=== PATIENT | female | born 1945 | race African-American/Black ===

== ENCOUNTER 2020-04-01 09:19 | Outpatient (CLI) | payer MEDICARE, OTHER, SELFPAY ==
--- NOTE | ~2020-04-01 | US_ITS ---
EXAMINATION: US pelvic complete w TV DATE: 04/01/2020 11:14 INDICATION: Other specified noninflammatory disorders of the vagina, vaginal discharge TECHNIQUE: Multiple transabdominal and endovaginal sonographic images of the pelvis were obtained. COMPARISON: 10/21/2012 FINDINGS: The uterus measures 5.8 x 4.6 x 3.1 cm. The endometrial complex measures 6 mm. The ovaries are not visualized however no adnexal abnormality is seen. There is no free fluid in the pelvis. IMPRESSION: 1. No sonographic correlate for the patient's symptoms. Reviewed, dictated and finalized at location A.
--- NOTE | ~2020-04-01 | US_ITS ---
EXAMINATION: US abdomen complete EXAM DATE: 04/01/2020 11:15 INDICATION: Elevated creatinine. TECHNIQUE: Multiple grayscale and Doppler images of the complete abdomen were obtained (by a technolo gist who performed the scan) and subsequently reviewed. There is no prior study for comparison. FINDINGS: The abdominal aorta is normal in caliber. Visualized portion IVC is patent. The pancreatic head a nd body are normal in appearance. The pancreatic tail is not visualized. The liver has normal echogenicity and contour. There is a cyst measuring 2.6 cm. There is no eviden ce of intrahepatic biliary duct dilation. Portal venous flow was seen in the hepatopedal, normal dir ection and has normal Doppler waveform. Common bile duct measures 4 mm, which is normal. The gallbladder wall is normal in thickness, with ex pected amount of distention. No sonographic evidence of pericholecystic fluid. There is no cholelit hiases. Technologist performing exam reports patient did not demonstrate sonographic Hyatt's sign. Please note that this sign is less reliable in patients who have received pain medication. Right kidney: There is normal contour and echogenicity. It measures 9.5 x 4.2 x 3.4 centimeters. T here are no focal renal lesions identified. There is no hydronephrosis. Left kidney: There is normal contour and echogenicity. It measures 9.3 x 4.6 x 4.6 centimeters. The re are cysts measuring up to 2.7 cm. There is no hydronephrosis. The spleen measures 7.9 centimeters and is morphologically normal. IMPRESSION: 1. Unremarkable complete abdominal ultrasound exam. Reviewed, dictated and finalized at location B.
== END 2020-04-01 09:20 | disposition home or self-care (01) ==
LOC: ANHIMG 09:25
PROVIDERS: PCP Family Medicine; Visit Provider Family Medicine
DX: E11.22 Type 2 diabetes mellitus with diabetic chronic kidney disease (principal); N89.8 Other specified noninflammatory disorders of vagina
CPT/HCPCS: 76700; 76830; 76856

== ENCOUNTER → 2020-06-22 12:25 | Outpatient (CLI) | payer MEDICARE, OTHER, SELFPAY ==
--- NOTE | ~2020-06-22 | MM_ITS ---
EXAMINATION: MM screening [facility] BI w deja HISTORY: Screening mammogram TECHNIQUE: Craniocaudal and mediolateral oblique 3-D tomosynthesis images were obtained and synthetic 2-D images were generated. CAD analysis was submitted and interpreted. COMPARISON: 05/29/2019, three 04/11/2018, 02/19/2017 BREAST PARENCHYMAL COMPOSITION: The breasts are almost entirely fatty. FINDINGS: There is no evidence of suspicious mass, calcification, or architectural distortion to sugg est malignancy in either breast. There has been no suspicious interval change. IMPRESSION: 1. No mammographic evidence of malignancy. 2. Recommend routine screening mammography in one year. BI-RADS Category 1: Negative Reviewed, dictated and finalized at location A. E RUBBER
--- NOTE | ~2020-06-22 | DEXA_ITS ---
Bone Density Report Name: Tata Bell Age: 74 Sex: Female Ethnicity: White Date of : 1945 Indication: postmenopausal; screening for osteoporosis; height loss; Referring Provider: CHRISTIANE PHILLIPS Study: Bone densitometry was performed. Exam Date: June 22, 2020 Accession number: [id number] Bone Density: Region BMD T-score Z-score Classification AP Spine (L1, L4) 1.389 3.2 5.7 Normal Femoral Neck (Left) 1.156 2.8 4.9 Normal Total Hip (Left) 1.007 0.5 2.4 Normal Femoral Neck (Right) 0.872 0.2 2.4 Normal Total Hip (Right) 0.983 0.3 2.2 Normal Total Hip Mean 0.995 0.4 2.3 Normal World Health Organization criteria for BMD impression classify patients as: Normal (T-score at or above -1.0), Osteopenia (T-score between -1.0 and -2.5), or Osteoporosis (T-score at or below -2.5). 10-year Fracture Risk: FRAX not reported because: All T-scores for Spine Total, Hip Total, Femoral Neck at or above -1.0 Previous Exams: Region Exam Age BMD T-score BMD Change BMD Change Date g/cm2 vs Baseline vs Previous AP Spine(L1, L4) 06/22/2020 74 1.389 3.2 -0.024* -0.024* 04/11/2018 72 1.412 3.4 Total Hip(Left) 06/22/2020 74 1.007 0.5 0.037* 0.037* 04/11/2018 72 0.970 0.2 Total Hip(Right) 06/22/2020 74 0.983 0.3 -0.034* -0.034* 04/11/2018 72 1.017 0.6 *Denotes significance at 95% confidence level, LSC for AP Spine = 0.022 g/cm2, LSC for Total Hip = 0.027 g/cm2 Clinical Information Provided by Patient: Has used the following medications: Vitamin D Patient maximum height was 62 Menopause Age: 48 No regular weight bearing exercise Does not regularly consume dairy products Drinks caffeinated beverages Onset of menses at age 9 Number of children 4 Impression: The patient has normal bone mass. The BMD for the AP Spine(L1, L4) decreased, changing by -0.024 since the last DXA exam. The BMD for the Total Hip(Right) decreased, changing by -0.034 since the last DXA exam. Discussion: LOW RISK OF FRACTURE; BONE DENSITY IS WELL ABOVE THE MINIMUM DESIRABLE LEVEL AND ABOVE AVERAGE FOR AGE AND SEX AT ALL SKELETAL SITES TESTED. This person's bone density is above expected limits for age and sex. This is rarely clinically significant, but should be pursued if there are significant musculoskeletal complaints. The patient should follow a healthful lifestyle (good nutrition with adequate calciu
== END ==
PROVIDERS: PCP Family Medicine; Visit Provider Family Medicine
DX: Z12.31 Encounter for screening mammogram for malignant neoplasm of breast (principal); Z78.0 Asymptomatic menopausal state
CPT/HCPCS: 77063; 77067; 77080

== ENCOUNTER 2020-07-03 12:35 | Outpatient (CLI) | payer MEDICARE, OTHER, SELFPAY ==
--- NOTE | ~2020-07-03 | CT_ITS ---
EXAMINATION: CT lumbar spine [facility] EXAM DATE: 07/03/2020 13:35 INDICATION: M47.816 - Spondylosis without myelopathy or radiculopathy, lumbar region. TECHNIQUE: Spiral CT of the lumbar spine was performed without contrast. Axial, coronal and sagittal images were reviewed. The dose-length product (DLP) for this examination was 416.42 mGy-cm. The e xposure was tailored according to patient size (auto mA exposure control), and iterative reconstructi on (ASIR) was used as additional dose reduction technique. Correlation is made to MR lumbar spine 06/2018. FINDINGS: There is moderate disc disease L1-2 and L4-5. There is 4 mm anterolisthesis L4 on L5 withou t spondylolysis. The vertebral bodies are otherwise aligned. Partial osseous fusion of the L5-S1 disc space. There are no acute fractures identified. Paraspinal soft tissue is unremarkable. Level by level evaluation: T12-L1: Disc does not extend beyond the endplate margin. Facet arthropathy: Mild to moderate. Neural foraminal stenosis: Mild to moderate right. Central canal stenosis: No stenosis. L1-L2: There is a mild diffuse disc bulge. Facet arthropathy: Moderate to severe bilateral. Neural foraminal stenosis: Mild bilateral. Central canal stenosis: Mild. L2-L3: There is a mild diffuse disc bulge. Facet arthropathy: Severe left, moderate right. Neural foraminal stenosis: Mild bilateral. Central canal stenosis: No stenosis. L3-L4: There is a mild diffuse disc bulge. Facet arthropathy: Severe left, moderate right. Neural foraminal stenosis: Mild bilateral. Central canal stenosis: Mild. L4-L5: There is a moderate diffuse disc bulge. Facet arthropathy: Severe bilateral. Neural foraminal stenosis: Moderate bilateral. Central canal stenosis: Moderate to severe. L5-S1: There is a moderate diffuse disc bulge. Facet arthropathy: Moderate. Neural foraminal stenosis: Moderate to severe right, moderate left. Central canal stenosis: Mild to moderate. IMPRESSION: 1. L4-5 grade 1 anterolisthesis, severe facet arthropathy and moderate to severe central canal steno sis. 2. Lesser spondylosis other levels. 3. No acute findings. Reviewed, dictated and finalized at location B. MOBILE OR TRUCK RENTAL DISPATCHER IMPRESSION: 1. L4-5 grade 1 anterolisthesis, severe facet arthropathy and moderate to vicky re central canal stenosis. 2. Lesser spondylosis other levels. 3. No acute findings.
== END 2020-07-03 12:36 | disposition home or self-care (01) ==
PROVIDERS: PCP Family Medicine; Visit Provider Family Medicine
DX: M47.816 Spondylosis without myelopathy or radiculopathy, lumbar region (principal); M48.061 Spinal stenosis, lumbar region without neurogenic claudication
CPT/HCPCS: 72131

== ENCOUNTER → 2021-03-15 12:59 | Outpatient (CLI) | payer MEDICARE, OTHER, SELFPAY ==
--- NOTE | ~2021-03-15 | US_ITS ---
EXAMINATION: US renal BI DATE: 03/15/2021 14:20 INDICATION: Chronic kidney disease stage III. TECHNIQUE: Multiple ultrasound grayscale images of the kidneys were obtained. COMPARISON: Ultrasound 04/01/2020, lumbar spine CT 07/03/2020, lumbar spine MRI 07/03/09 FINDINGS: The right kidney measures 7.4 x 4.0 x 4.0 cm. The left kidney measures 7.7 x 3.8 x 3.3 cm. The kidney s demonstrate normal parenchymal echogenicity. There are cysts in left kidney measuring up to 2.3 cm. There is no hydronephrosis. The bladder is normal. IMPRESSION: 1. Mild atrophy of the kidneys. No hydronephrosis. Reviewed, dictated and finalized at location A.
== END ==
PROVIDERS: PCP Family Medicine; Visit Provider Family Medicine
DX: N18.30 Chronic kidney disease, stage 3 unspecified (principal); N26.1 Atrophy of kidney (terminal)
CPT/HCPCS: 76775

== ENCOUNTER → 2021-04-20 07:23 | Outpatient (CLI) | payer MEDICARE, OTHER, SELFPAY ==
--- NOTE | 2021-05-13 17:44 | WPDSLEEPSTUD ---
Sleep Study Date of Study: 04/20/21 Ordering Provider: Paxton London MD Interpreting Physician: Marianne Medrano MD Sleep Study Type: Polysomnogram Height: 1.55 m Weight: 69.4 kg Body Mass Index: 28.9 Neck Circumference (inches): 13 [place]: 11 Reason for Sleep Study Hypersomnolence, obstructive sleep apnea * 01/09/2006; basic sleep study; Moderate obstructive sleep apnea with an AHI of 20.2, significant oxygen desaturation and mild myoclonus. * 02/18/2006; CPAP titration; optimal pressure 17 cm; still had elevated limb movements during the titration. BMI was 36.1. Sleep History Tata Bell is a 75 year old female with excessive daytime sleepiness. She has a deviated nasal septum and hypertrophy of the nasal turbinates. She has had obstructive sleep apnea diagnosed 30 years ago. She used CPAP for a few years then stopped. She had a repeat basic study 01/09/2006 and started using it again after a CPAP retitration in 2005 with 17 cm as the optimal pressure. She stopped using CPAP when COVID pandemic started. She has lost weight and is not sure that she still needs CPAP.. She was also worried with a Eleuterio recall about using her device. Her witnessed her having apneic respirations almost nightly. She has 2 brothers with sleep apnea. She has difficulty falling asleep at night she wakes up during the night. She rarely awakens from sleep feeling short of breath. She does not awaken at night with heartburn, belching or coughing. She frequently snores loudly. She occasionally has trouble sleeping with a cold. She does not wake up gasping for breath at night. She frequently has breathing problems at night. She rarely sweats excessively at night. She does not notice her heart pounding or beating irregularly at night. She constantly falls asleep during the day, constantly falls asleep involuntarily but never while driving. She does not have loss of muscle tone with strong emotion. She does not have daytime difficulties due to excessive sleepiness. She does not feel paralyzed on waking or falling asleep. She does not feel afraid to go to sleep. She does not have nightmares. She frequently remembers her dreams. She rarely has racing thoughts. She occasionally feels sad or depressed. She occasionally has anxiety. She rarely has muscular tension. She does not notice parts of her body jerking and she does not kick at night. She rarely has crawling and aching feelings in her legs. She rarely has any kind of leg pain at night. She does not have morning jaw pain and does not grind her teeth during sleep. She rarely is bothered by pain during the day or awakened by pain at night. She rarely wakes up feeling stiff in the morning with sore or achy muscles. She rarely wakes up with pain in the neck and spine. She has memory problems, fatigue, depression and she takes sedatives. Normal bedtime is 11:00 p.m. to midnight taking a long while to fall asleep sometimes up to 2 hours. She wakes up once at night to read or perhaps play games on her electronic tablet. She stays awake for 2 hours or longer. She wakes the morning between 9 and 10:00 a.m.. Her excessive sleepiness causes her to cut back on social events. She takes naps in the afternoon or evening. A short nap may be refreshing. She feels better in the evening compared other times of day. Habits: smoke tobacco quit 18 years ago. Caffeine 1 cup of coffee about twice a week. Alcohol, wine coolers, twice a month. No recreational drugs. [facility] Past Medical History Medical History Benign essential HTN Familial hyperlipoproteinemia type IIb Lumbar spondylosis Mixed hyperlipidemia LUIS (obstructive sleep apnea) Type 2 diabetes mellitus with diabetic chronic kidney disease Surgical History Surgical History S/P total knee arthroplasty Family History Family History (Revi
[2021-05-13 19:50] VITALS: BMI 28.9
== END ==
PROVIDERS: PCP Family Medicine; Visit Provider Otolaryngology
DX: G47.33 Obstructive sleep apnea (adult) (pediatric) (principal); G47.8 Other sleep disorders
CPT/HCPCS: 95810

== ENCOUNTER 2021-07-22 14:37 | Outpatient (CLI) | payer MEDICARE, OTHER, SELFPAY ==
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
== END 2021-07-22 14:38 | disposition home or self-care (01) ==
LOC: ANHIMG 14:44
PROVIDERS: PCP Family Medicine; Visit Provider Nurse Practitioner Gerontology
DX: M25.562 Pain in left knee (principal); Z96.652 Presence of left artificial knee joint; M23.42 Loose body in knee, left knee
CPT/HCPCS: 73562

== ENCOUNTER → 2021-09-09 14:30 | Outpatient (CLI) | payer MEDICARE, OTHER, SELFPAY ==
--- NOTE | ~2021-09-09 | MM_ITS ---
EXAMINATION: MM screening [facility] BI w deja HISTORY: Screening mammogram TECHNIQUE: Craniocaudal and mediolateral oblique 3-D tomosynthesis images were obtained and synthetic 2-D images were generated. CAD analysis was submitted and interpreted. COMPARISON: 06/22/2020, 05/29/2019, 04/11/2018 BREAST PARENCHYMAL COMPOSITION: The breasts are almost entirely fatty. FINDINGS: There is no evidence of suspicious mass, calcification, or architectural distortion to sugg est malignancy in either breast. There has been no suspicious interval change. IMPRESSION: 1. No mammographic evidence of malignancy. 2. Recommend routine screening mammography in one year. BI-RADS Category 1: Negative Reviewed, dictated and finalized at location A. ING REPRESENTATIVE
== END ==
PROVIDERS: PCP Family Medicine; Visit Provider Family Medicine
DX: Z12.31 Encounter for screening mammogram for malignant neoplasm of breast (principal)
CPT/HCPCS: 77063; 77067

== ENCOUNTER → 2021-10-28 14:08 | Outpatient (CLI) | payer MEDICARE, OTHER, SELFPAY ==
--- NOTE | ~2021-10-28 | XR_ITS ---
EXAMINATION: XR chest 2V 10/28/2021 15:53 INDICATION: Hypertension. Chronic kidney disease. PROCEDURE: 2 view chest COMPARISON: 04/02/2015 FINDINGS: The lungs are clear. The cardiomediastinal silhouette is within normal limits. There are no pleural effusions. There is no pneumothorax suspected. IMPRESSION: 1: NO ACUTE CARDIOPULMONARY DISEASE. Reviewed, dictated and finalized at location B.
== END ==
PROVIDERS: PCP Family Medicine; Visit Provider Nurse Practitioner Gerontology
DX: N18.31 Chronic kidney disease, stage 3a (principal); I12.9 Hypertensive chronic kidney disease with stage 1 through stage 4 chronic kidney disease, or unspecified chronic kidney disease; Z87.891 Personal history of nicotine dependence
CPT/HCPCS: 71046

== ENCOUNTER 2021-12-01 10:57 | Outpatient (CLI) | payer MEDICARE, OTHER, SELFPAY ==
--- NOTE | ~2021-12-01 | US_ITS ---
EXAMINATION: US renal BI DATE: 12/01/2021 12:13 INDICATION: Stage III chronic kidney disease TECHNIQUE: Multiple ultrasound grayscale images of the kidneys were obtained. COMPARISON: 03/15/2021 FINDINGS: The right kidney measures 8.2 x 4.6 x 4.1 cm. The left kidney measures 8.9 x 5.2 x 4.3 cm. The kidney s demonstrate normal echogenicity with mild cortical thinning. There are couple anechoic cysts in the mid left kidney measuring 2.7 cm and 2.6 mm in maximal diameters. There is no hydronephrosis in eith er kidney. No stones identified. The bladder is normal. IMPRESSION: 1. Mild bilateral renal atrophy with a couple left renal cyst. No hydronephrosis. Reviewed, dictated and finalized at location A. IMPRESSION: 1. Mild bilateral renal atrophy with a couple left renal cyst. No hydronephros is.
== END 2021-12-01 10:58 | disposition home or self-care (01) ==
LOC: ANHIMG 10:58
PROVIDERS: PCP Family Medicine; Visit Provider Family Medicine
DX: N18.31 Chronic kidney disease, stage 3a (principal); N28.1 Cyst of kidney, acquired; N26.1 Atrophy of kidney (terminal)
CPT/HCPCS: 76775

== ENCOUNTER 2022-09-12 12:25 | Outpatient (CLI) | payer MEDICARE, OTHER, SELFPAY ==
--- NOTE | ~2022-09-12 | US_ITS ---
EXAMINATION: US carotid duplex BI DATE: 09/12/2022 13:20 INDICATION: Carotid atherosclerosis and stenosis. Other specified signs/symptoms involving the respir atory circulation. TECHNIQUE: Grayscale, color Doppler, and pulsed Doppler images of the cervical carotid arteries were obtained. The degree of vessel stenosis is placed in one of the following categories: normal, <50%, 5 0-69%, >=70% but less than near-occlusion, near-occlusion, or total occlusion. Note that percent sten osis relative to normal distal artery lumen diameter is indirectly measured from velocity measurement s as described by Mauri, et al. Radiology 2003; [id number]:340-346. COMPARISON: 03/24/2019 FINDINGS: RIGHT: The right common carotid artery (CCA) peak systolic velocity (PSV) is 99 cm/s. The right internal car otid artery (ICA) PSV is 77 cm/s. The right ICA end-diastolic velocity (EDV) is 15 cm/s. The right IC A/CCA PSV ratio is 0.8. Grayscale and color Doppler images yield an estimate of <50% diameter reducti on from plaque in the ICA. The external carotid artery (ECA) PSV is 141 cm/s. There is antegrade flow in the right vertebral artery. LEFT: The left CCA PSV is 92 cm/s. The left ICA PSV is 71 cm/s. The left ICA EDV is 19 cm/s. The left ICA/C CA PSV ratio is 0.8. Grayscale and color Doppler images yield an estimate of <50% diameter reduction from plaque in the ICA. The ECA PSV is 122 cm/s. There is antegrade flow in the left vertebral artery . IMPRESSION: 1. <50% stenosis in the right internal carotid artery. 2. <50% stenosis in the left internal carotid artery. Reviewed, dictated and finalized at location A. IGN STUDENT ADVISER TEACHER
== END 2022-09-12 12:26 | disposition home or self-care (01) ==
PROVIDERS: PCP Family Medicine; Visit Provider Family Medicine
DX: R09.89 Other specified symptoms and signs involving the circulatory and respiratory systems (principal); I65.23 Occlusion and stenosis of bilateral carotid arteries
CPT/HCPCS: 93880

== ENCOUNTER → 2022-09-28 13:53 | Outpatient (CLI) | payer MEDICARE, OTHER, SELFPAY ==
--- NOTE | ~2022-09-28 | MR_ITS ---
EXAMINATION: MR pelvis wo con DATE: 09/28/2022 14:44 INDICATION: Left groin and thigh pain. TECHNIQUE: Magnetic resonance imaging (MRI) of the pelvis was performed without intravenous contrast. COMPARISON: None. FINDINGS: There are no pathologically enlarged lymph nodes. There is no free intraperitoneal fluid. There is an umbilical hernia containing fat. Bone alignment is normal. No fracture. There is moderate lumbar spo ndylosis. There is severe osteoarthritis of the hips. There is mild tendinopathy of the hamstring latanya gins bilaterally. The iliopsoas tendons are normal. The right gluteus minimus and gluteus medius tend ons are normal. There is mild left gluteus minimus tendinopathy. Left gluteus medius tendon is normal . There is mild bilateral trochanteric bursitis. IMPRESSION: 1. Severe osteoarthritis of the hips. Reviewed, dictated and finalized at location A. LY CHAIN BUSINESS ANALYST
== END ==
PROVIDERS: PCP Family Medicine; Visit Provider Family Medicine
DX: M79.605 Pain in left leg (principal); M16.0 Bilateral primary osteoarthritis of hip
CPT/HCPCS: 72195

== ENCOUNTER → 2022-11-17 13:29 | Outpatient (CLI) | payer MEDICARE, OTHER, SELFPAY ==
--- NOTE | ~2022-11-17 | DEXA_ITS ---
Bone Density Report Name: MARIAM FISHER Age: 77 Sex: Female Ethnicity: Black Date of : 1945 Indication: postmenopausal; screening for osteoporosis; height loss; rheumatoid arthritis; Referring Provider: CHRISTIANE PHILLIPS Study: Bone densitometry was performed. Exam Date: November 17, 2022 Accession number: [id number] Bone Density: Region BMD T-score Z-score Classification AP Spine (L1, L4) 1.366 3.0 4.9 Normal Femoral Neck (Left) 1.080 2.1 2.7 Normal Total Hip (Left) 0.964 0.2 1.1 Normal Femoral Neck (Right) 1.168 2.9 3.3 Normal Total Hip (Right) 1.036 0.8 1.5 Normal Total Hip Mean 1.000 0.5 1.3 Normal World Health Organization criteria for BMD impression classify patients as: Normal (T-score at or above -1.0), Osteopenia (T-score between -1.0 and -2.5), or Osteoporosis (T-score at or below -2.5). 10-year Fracture Risk: FRAX not reported because: All T-scores for Spine Total, Hip Total, Femoral Neck at or above -1.0 Previous Exams: Region Exam Age BMD T-score BMD Change BMD Change Date g/cm2 vs Baseline vs Previous AP Spine(L1, L4) 11/17/2022 77 1.366 3.0 -0.046* -0.023 06/22/2020 74 1.389 3.2 -0.024* -0.024* 04/11/2018 72 1.412 3.4 Total Hip(Left) 11/17/2022 77 0.964 0.2 -0.006 -0.043* 06/22/2020 74 1.007 0.5 0.037* 0.037* 04/11/2018 72 0.970 0.2 Total Hip(Right) 11/17/2022 77 1.036 0.8 0.019 0.053* 06/22/2020 74 0.983 0.3 -0.034* -0.034* 04/11/2018 72 1.017 0.6 *Denotes significance at 95% confidence level, LSC for AP Spine = 0.022 g/cm2, LSC for Total Hip = 0.027 g/cm2 Clinical Information Provided by Patient: Has rheumatoid arthritis Has used the following medications: Vitamin D, Calcium, MTV Patient maximum height was 62 Menopause Age: 48 No regular weight bearing exercise Drinks caffeinated beverages Onset of menses at age 9 Number of children 4 Impression: The patient has normal bone mass. The BMD for the Total Hip(Left) decreased, changing by -0.043 since the last DXA exam. Discussion: BONE DENSITY IS ABOVE THE MINIMUM DESIRABLE LEVEL AT ALL SKELETAL SITES TESTED. This patient?s bone mineral density is above the minimum desirable level (T-score -1.0 or better) at all sites measured. The patient should follow a healthful lifestyle (good nutrition with adequate calcium
--- NOTE | ~2022-11-17 | MM_ITS ---
EXAMINATION: MM screening [facility] BI w deja HISTORY: Screening TECHNIQUE: Craniocaudal and mediolateral oblique 3-D tomosynthesis images were obtained and synthetic 2-D images were generated. CAD analysis was submitted and interpreted. COMPARISON: Comparison to multiple prior studies sequentially, with oldest reviewed study dated 02/08. BREAST PARENCHYMAL COMPOSITION: There are scattered areas of fibroglandular density. FINDINGS: There is no evidence of suspicious mass, calcification, or architectural distortion to sugg est malignancy in either breast. There has been no suspicious interval change. IMPRESSION: 1. No mammographic evidence of malignancy. 2. Recommend routine screening mammography in one year. BI-RADS Category 1: Negative Reviewed, dictated and finalized at location A.
== END ==
PROVIDERS: PCP Family Medicine; Visit Provider Family Medicine
DX: Z12.31 Encounter for screening mammogram for malignant neoplasm of breast (principal); Z78.0 Asymptomatic menopausal state
CPT/HCPCS: 77063; 77067; 77080

== ENCOUNTER 2023-03-27 08:00 | Outpatient (CLI) | payer MEDICARE, OTHER, SELFPAY ==
--- NOTE | 2023-03-27 | ECHO_ITS ---
Patient Info Name: Ttaa Bell Age: 77 years : 1945 Gender: Female Ht: 60 in Wt: 162 lbs BSA: 1.79 m2 HR: 68 bpm BP: 160 / 86 mmHg Technical Quality: Fair Exam Date: 03/27/2023 11:31 AM Exam Location: [facility] Patient Status: Outpatient Admit Date: 03/27/2023 Staff Ordering Physician: Quinn Jacinto DO Heating Element Winder: Lisa Milner RDCS Attending Provider: Quinn Jacinto DO Exam Type: CA echo dop color flow w con Study Info Indications R06.09 - Other forms of dyspnea Complete two-dimensional, color flow and Doppler transthoracic echocardiogram is performed with contrast to opacify the left ventricle and to improve the deliniation of the left ventricle endocardial borders. Contrast/Agitated Saline Contrast/Ag. Saline: Definity Amount: 2.00 ml Administered By: Lisa Milner RDCS Existing IV Access: Yes Site Condition: Site dressing applied, No extravasation and IV removed Summary 1. Definity contrast administered improved wall motion interpretation. 2. Left ventricular chamber dimension is normal. 3. Left ventricular systolic function is normal, estimated at 60-65%. 4. The left ventricular diastolic function is grade I diastolic dysfunction. 5. E/e' 11 is mildly elevated. 6. Global longitudinal strain is normal at -18.7%. 7. There is mild aortic valve sclerosis. 8. There is mild mitral valve regurgitation. 9. There is mild tricuspid valve regurgitation. 10. No pulmonary hypertension, estimated pulmonary arterial systolic pressure is 34 mmHg. Left Ventricle E/e' 11 is mildly elevated. Global longitudinal strain is normal at -18.7%. Definity contrast administered improved wall motion interpretation. Left ventricular chamber dimension is normal. Left ventricular systolic function is normal, estimated at 60-65%. The left ventricular diastolic function is grade I diastolic dysfunction. Right Ventricle Right ventricular systolic function is normal and with normal TAPSE 2.1 cm. Right ventricular chamber dimension is normal. Left Atria Left atrial chamber dimension is normal. Right Atria Right atrial chamber dimension is normal. Aortic Valve The aortic valve is trileaflet. There is mild aortic valve sclerosis. There is no aortic valve stenosis. There is no aortic valve regurgitation. Pulmonic Valve There is no pulmonic regurgitation. Mitral Valve There is no mitral valve stenosis. There is mild mitral valve regurgitation. Tricuspid Valve There is mild tricuspid valve regurgitation. No pulmonary hypertension, estimated pulmonary arterial systolic pressure is 34 mmHg. Pericardium/Pleural There is no pericardial effusion. Inferior Vena Cava Normal inferior vena cava with >50% collapse upon inspiration consistent with normal right atrial pressure, 5 mmHg. Aorta The aortic root size at the sinus of Valsalva is normal. Left Ventricular Outflow Tract Name Value Normal LVOT 2D LVOT Diameter 1.91 cm LVOT Doppler LVOT Peak Gradient 4 mmHg LVOT Mean Gradient 2 mmHg LVOT VTI 23.18 cm LVOT VTI/AV VTI Ratio 0.94
--- NOTE | ~2023-03-27 | NM_ITS ---
EXAMINATION: NM catracho stress w perfusion DATE: 03/27/2023 10:48 INDICATION: Other forms of dyspnea TECHNIQUE: Rest images were obtained following intravenous administration of 8.5 mCi Tc99m tetrofosmi n (Myoview). The patient was infused intravenously with Lexiscan (Regadenoson). Then, 27 mCi Tc99m te trofosmin (Myoview) was administered intravenously, and stress images were obtained. Data was reconst ructed into short axis and horizontal and vertical long axis SPECT images. Gated SPECT images were al so obtained. COMPARISON: None. FINDINGS: There is no definite reversible or fixed perfusion abnormality to suggest ischemia or infar ction. There is normal left ventricular chamber size, wall motion and ejection fraction. Left ventr icular ejection fraction measures >70%. IMPRESSION: 1. Normal myocardial perfusion at rest and during stress. 2. Left ventricular ejection fraction measuring >70%. Reviewed, dictated and finalized at location A.
--- NOTE | 2023-03-27 08:22 | EST_ITS ---
Patient Info Name: Tata Bell Age: 77 years : 1945 Gender: Female Ht: 60 in Wt: 162 lbs BSA: 1.79 m2 HR: 74 bpm BP: 152 / 82 mmHg Heart Rhythm: Sinus Rhythm Exam Date: 03/27/2023 9:10 AM Exam Location: [facility] Patient Status: Outpatient Admit Date: 03/27/2023 Staff Ordering Physician: Quinn Jacinto DO Attending Provider: Quinn Jacinto DO Exercise Technologist: Ivania Parra CT Exam Type: CA stress catracho w NM Study Info Indications R06.09 - Other forms of dyspnea A regadenoson stress test was performed. Summary 1. 1. Negative lexiscan stress test for ischemic ST changes by ECG criteria. 2. 2. Baseline hypertension. 3. 3. Nuclear scan to follow and will be reported separately. Please correlate with it. 4. 4. Patient informed of the above results. Protocol: Lexiscan Stress ECG Details Stage: REST Duration (min): 1 min : 8 sec HR (bpm): 74 SBP (mmHg): 152 DBP (mmHg): 82 Stage: REST Duration (min): 6 min : 46 sec HR (bpm): 78 SBP (mmHg): 152 DBP (mmHg): 82 Stage: STAGE 1 Duration (min): 1 min : 0 sec HR (bpm): 92 SBP (mmHg): 151 DBP (mmHg): 81 Stage: RECOVERY Duration (min): 1 min : 0 sec HR (bpm): 98 SBP (mmHg): 151 DBP (mmHg): 81 Stage: RECOVERY Duration (min): 2 min : 0 sec HR (bpm): 99 SBP (mmHg): 151 DBP (mmHg): 81 Stage: RECOVERY Duration (min): 3 min : 0 sec HR (bpm): 96 SBP (mmHg): 131 DBP (mmHg): 79 Stage: RECOVERY Duration (min): 4 min : 0 sec HR (bpm): 96 SBP (mmHg): 131 DBP (mmHg): 79 Stage: RECOVERY Duration (min): 5 min : 0 sec HR (bpm): 98 SBP (mmHg): 137 DBP (mmHg): 77 Stage: RECOVERY Duration (min): 5 min : 25 sec HR (bpm): 97 SBP (mmHg): 137 DBP (mmHg): 77 Rest HR: 78 bpm Peak HR: 99 bpm Rest Sys BP: 152 mmHg Peak Sys BP: 151 mmHg Max Pred HR: 141 bpm % Max Pred HR: 70 % Target HR: 120 bpm Max RPP: 14,949 bpm*mmHg Termination Reason: Completed protocol Cardiac Symptoms: Shortness of breath Total Time: 1 min : 0 sec Rest Woodruff BP: 82 mmHg Peak Woodruff BP: 81 mmHg Total Dose: 0.4 mg Resting ECG Sinus rhythm, RBBB. Stress ECG No ST changes. Arrhythmias None. Report Signatures
[2023-03-27] MEDS: PERFLUTREN LIPID MICROSPHERES 1.5 ML VIAL DILUTED TO 10 ML TOTAL VOLUME IV PUSH (11:20)
== END 2023-03-27 08:01 | disposition home or self-care (01) ==
PROVIDERS: PCP Family Medicine; Visit Provider Internal Medicine Cardiovascular Disease
DX: R93.1 Abnormal findings on diagnostic imaging of heart and coronary circulation (principal); I35.8 Other nonrheumatic aortic valve disorders; I34.0 Nonrheumatic mitral (valve) insufficiency; I07.1 Rheumatic tricuspid insufficiency; R06.09 Other forms of dyspnea; I10 Essential (primary) hypertension
CPT/HCPCS: 78452; 93017; A9502; C8929; J2785; Q9957

== ENCOUNTER 2023-05-11 09:53 | Outpatient (CLI) | payer MEDICARE, OTHER, SELFPAY ==
--- NOTE | ~2023-05-11 | NM_ITS ---
CORRECTED REPORT Images and reports moved from [id number] to [id number]/[facility] NM lung vent and perfusion INDICATION: Dyspnea TECHNIQUE: The patient inhaled aerosolized 15 mCi xenon-133. Following ventilation scan, 5 mCi Tc 99m MAA was injected intravenously for perfusion images. Multiple images were then acquired. COMPARISON: Chest x-ray dated 05/11/2023 FINDINGS: The comparison chest radiograph demonstrates no pulmonary infiltrates or pleural fluid. The perfusion scan is normal. The aerosol in images show uniform deposition throughout the lungs. IMPRESSION: 1: Normal ventilation and perfusion images. Reviewed, dictated and finalized at location B. MTDD
--- NOTE | ~2023-05-11 | XR_ITS ---
CORRECTED REPORT Images and reports moved from [id number] to [id number] EXAMINATION: XR chest 2V DATE: 05/11/2023 13:35 INDICATION: Other forms of dyspnea. TECHNIQUE: Frontal and lateral views of the chest were obtained. COMPARISON: Chest 2 views 10/28/2021 FINDINGS: There is no pneumonia, pleural effusion, or pneumothorax. The heart size is normal. IMPRESSION: 1. No acute cardiopulmonary disease. Reviewed, dictated and finalized at location E. [facility]
[2023-05-11 10:28] LABS: Basophils Absolute Auto 0.1 K/mm3 (0.0-0.1); Basophils Percent Auto 0.8 % (0.2-1.2); Eosinophils Absolute Auto 0.2 K/mm3 (0-0.3); Eosinophils Percent Auto 2.6 % (0-4.4); Hematocrit 33.8 % (37.0-47.0); Hemoglobin 10.3 g/dL (12.0-15.0); Immature Granulocyte Absolute 0.03 K/mm3 (0.00-0.031); Immature Granulocyte Percent A 0.4 % (0-0.5); Lymphocytes Absolute Auto 2.14 K/mm3 (0.9-3.2); Lymphocytes Percent Auto 29.2 % (18.3-44.2); Mean Corpuscular HGB Conc 30.5 g/dl (32-36); Mean Corpuscular Hemoglobin 29.6 pg (26-34); Mean Corpuscular Volume 97.1 fl (80-100); Mean Platelet Volume 9.5 fl (7.4-10.4); Monocytes Absolute Auto 0.6 K/mm3 (0.1-0.6); Monocytes Percent Auto 7.5 % (2.6-8.5); Neutrophils Absolute Auto 4.4 K/mm3 (1.3-6.7); Neutrophils Percent Auto 59.5 % (45.5-73.1); Platelet Count Result 324 k/mm3 (150-375); Red Blood Count 3.48 M/mm3 (4.2-5.4); Red Cell Distribution Width 14.4 % (11.5-14.5); White Blood Count 7.3 K/mm3 (4.5-10.0)
[2023-05-11 10:40] LABS: Alanine Aminotransferase 24 U/L (6-35); Albumin Level 4.6 g/dL (3.5-5.1); Alkaline Phosphatase 99 U/L (38-126); Anion Gap 9 mmol/L (8-16); Aspartate Amino Transferase 39 U/L (14-36); Bilirubin,Total 0.7 mg/dL (0.2-1.3); Blood Urea Nitrogen 49 mg/dL (7-17); Calcium 9.6 mg/dL (8.4-10.2); Carbon Dioxide 21 mmol/L (22-30); Chloride 107 mmol/L (98-107); Estimated Glomerular Filt Rate 28; Glucose 109 mg/dL (65-110); Potassium 5.7 mmol/L (3.4-5.0); Sodium 137 mmol/L (137-145)
[2023-05-11 10:51] LABS: Troponin I < 0.012 ng/mL (0.000-0.034)
== END 2023-05-11 09:54 | disposition home or self-care (01) ==
PROVIDERS: PCP Family Medicine; Visit Provider Physician Assistant
DX: R06.09 Other forms of dyspnea (principal); R00.0 Tachycardia, unspecified; R61 Generalized hyperhidrosis; Z98.890 Other specified postprocedural states
CPT/HCPCS: 36415; 71046; 78582; 80053; 84484; 85025; A9540; A9558

== ENCOUNTER → 2023-06-20 13:05 | Outpatient (CLI) | payer MEDICARE, OTHER, SELFPAY ==
--- NOTE | ~2023-06-20 | US_ITS ---
EXAMINATION: US renal BI DATE: 06/20/2023 13:27 INDICATION: Acute on chronic kidney disease. TECHNIQUE: Multiple grayscale and Doppler ultrasound images of the kidneys were obtained. COMPARISON: 12/01/2021 FINDINGS: The right kidney measures 8.6 x 3.6 x 4.2 cm. The left kidney measures 8.7 x 5.3 x 5.5 cm. The kidneys demonstrate increased parenchymal echogenicity. There are cysts of the left kidney which measure up to 2.6 cm. There is no hydronephrosis. The bladder is normal. Cholelithiasis is incidental ly noted. IMPRESSION: 1. Medical renal disease. 2. Cholelithiasis. Reviewed, dictated and finalized at location B. 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
== END ==
PROVIDERS: PCP Family Medicine; Visit Provider Internal Medicine Nephrology
DX: N18.9 Chronic kidney disease, unspecified (principal); K80.20 Calculus of gallbladder without cholecystitis without obstruction; N28.89 Other specified disorders of kidney and ureter
CPT/HCPCS: 76775

== ENCOUNTER 2023-12-06 14:26 | Outpatient (CLI) | payer MEDICARE, OTHER, SELFPAY ==
--- NOTE | ~2023-12-06 | MM_ITS ---
EXAMINATION: MM screening shady BI w deja HISTORY: Screening mammogram TECHNIQUE: Craniocaudal and mediolateral oblique 3-D tomosynthesis images were obtained and synthetic 2-D images were generated. CAD analysis was submitted and interpreted. COMPARISON: November 17, 2022, September 09, 2021 bilateral screening mammogram examinations BREAST PARENCHYMAL COMPOSITION: There are scattered areas of fibroglandular density. FINDINGS: There is no evidence of suspicious mass, calcification, or architectural distortion to sugg est malignancy in either breast. There has been no suspicious interval change. IMPRESSION: 1. No mammographic evidence of malignancy. 2. Recommend routine screening mammography in one year. BI-RADS Category 1: Negative Reviewed, dictated and finalized at location A.
== END 2023-12-06 14:27 ==
PROVIDERS: PCP Family Medicine; Visit Provider Family Medicine
DX: Z12.31 Encounter for screening mammogram for malignant neoplasm of breast (principal)
CPT/HCPCS: 77063; 77067

== ENCOUNTER 2024-02-04 14:21 | Outpatient (CLI) | payer MEDICARE, OTHER, SELFPAY ==
--- NOTE | ~2024-02-04 | XR_ITS ---
EXAMINATION: XR wrist LT min 3V DATE: 02/04/2024 14:42 INDICATION: Wrist pain TECHNIQUE: Posteroanterior, ulnar deviation, oblique, and lateral views of the left wrist were obtain ed. COMPARISON: none FINDINGS: Diffuse osteopenia. Lunotriquetral coalition. Bone alignment is normal. No fracture. Chondrocalcinosi s at the triangular fibrocartilage complex. Polyarticular osteoarthritis, moderate severity at the fi rst carpal metacarpal joint and mild at the wrist, second carpometacarpal and first metacarpophalange al joints. Erosion versus degenerative subchondral cyst at the radial aspect of the lunate. IMPRESSION: 1. Polyarticular osteoarthritis, moderate severity at the first carpometacarpal joint. Reviewed, dictated and finalized at location B.
== END 2024-02-04 14:22 | disposition home or self-care (01) ==
PROVIDERS: PCP Family Medicine; Visit Provider Physician Assistant
DX: M18.12 Unilateral primary osteoarthritis of first carpometacarpal joint, left hand (principal)
CPT/HCPCS: 73110

== ENCOUNTER 2024-06-28 20:01 | Emergency (ER) | payer MEDICARE, OTHER, SELFPAY ==
--- NOTE | ~2024-06-28 | XR_ITS ---
EXAM: XR wrist LT min 3V, XR forearm LT 2V DATE: 06/28/2024 20:29 HISTORY: pain, NKI . COMPARISON: None available. FINDINGS: Decreased mineralization. No fracture or dislocation. No lytic or blastic lesion. Scattere d moderate degenerative changes. Chondrocalcinosis at the TFCC. Mild degenerative change at the elbow joint. No erosion or periosteal change. Possible posterior soft tissue swelling along the forearm. D isplacement of the anterior and posterior elbow fat pads. Olecranon enthesopathy. IMPRESSION: No acute osseous finding the left wrist. Moderate elbow joint effusion which can accompan y occult fractures, likely of the radial head in a patient of this age. Reviewed, dictated and finalized at location K. NEL MARKETING COORDINATOR IMPRESSION: No acute osseous finding the left wrist. Moderate elbow joint effus ion which can accompany occult fractures, likely of the radial head in a patien t of this age.
[2024-06-28 20:03] VITALS: BP 188/75; PULSE 99; RESP 13; TEMP 37; O2SAT 100
--- NOTE | 2024-06-28 23:34 | ED_ITS ---
HPI - Extremity Injury (Upper) General Chief Complaint: Extremity Injury, Upper Stated Complaint: left arm/ hand pain Time Seen by Provider: 06/28/24 23:32 Source: patient Mode of arrival: ambulatory Limitations: no limitations History of Present Illness HPI narrative: This is an 78-year-old female who presents to the ED for chief complaint of left wrist pain past 4 days. Denies any trauma injury to the LUE. States that she woke up Sunday morning with this pain. Over the last couple of days she has noticed the wrist feels very warm and swollen. Also reports that feels somewhat swollen but not as bad as wrist. Denies any right-sided symptoms. Denies any recent infections, procedures or surgeries. States she has not had pain like this before. Denies fevers, chills, nausea, vomiting, numbness, weakness. Related Data Allergies Allergy/AdvReac Type Severity Reaction Status Date / Time No Known Allergies Allergy Verified 06/28/24 20:02 Review of Systems Review of Systems: All systems as dictated in HPI [facility] Past Medical History Medical History Arthritis Arthritis of knee Arthropathy, unspecified Autonomic neuropathy in diseases classified elsewhere Benign essential HTN Chronic kidney disease, stage 2 (mild) Chronic pain of left lower extremity Degenerative joint disease (DJD) of hip Depression Diarrhea Dietary counseling and surveillance (09/16/18) DM w/o complication type II Essential (primary) hypertension Familial hyperlipoproteinemia type IIb Generalized anxiety disorder Greater trochanteric bursitis of both hips History of cyst of breast Hoarseness Labyrinthitis, bilateral Lumbar spondylosis Lumbosacral spondylosis with radiculopathy Mixed hyperlipidemia Mixed hyperlipidemia Obstructive sleep apnea (adult) (pediatric) LUIS (obstructive sleep apnea) Other and unspecified hyperlipidemia Other chronic pain Post-menopausal Primary generalized (osteo)arthritis Sacroiliitis Trochanteric bursitis, left hip 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 Urinary frequency Vertigo Wears glasses Surgical History Surgical History History of knee replacement History of tubal ligation S/P total knee arthroplasty Family History Family History Mother Hypertension Family history of elevated blood lipids Family history of diabetes mellitus in first degree relative Other Arthritis Depression Diabetes mellitus Heart disease Kidney disorder Lung cancer Lung disease Malignant neoplasm of prostate Social History Social History Social History: Smoking packs per day: 2 Smoking cigarettes per day: 40.0 Years smoked: 30 Smoking pack-years: 60.00 Smoking status: Former smoker Tobacco type: cigarettes Second hand tobacco smoke exposure: No Smoking end date: 08/13/89 Alcohol intake: current Alcohol use details: Occasionally Substance use: never Substance use type: does not use Do You Feel Safe in your Home?: Yes Lack of Transportation: No Lack of Food: Never True Current Housing: I Have Housing Concerned About Future Housing: No Difficulty Paying Gas/Electric Bills: No Difficulty Paying for Meds: No Currently Unemployed: YES Education: Associate Degree Difficulty w/ Childcare or Family Care: No Living arrangements: alone Occupation/Education: retired Gender identity (if verbalized by the patient): Female Sexual Orientation (if Verbalized by the Patient): Straight or Heterosexual Exam Narrative: GENERAL: Well-appearing, well-nourished, and in no acute distress. HEAD: Normocephalic, atraumatic. EYES: PERRLA and EOMI. ENT: Nares clear, no rhinorrhea or epistaxis. Mucous membranes moist. Oropharynx without tonsillar hypertrophy exudate or other lesions. NECK: Supple. No adenopathy or masses. CHEST: No respiratory distress. Clear to auscultation. No wheezes rales or rho nchi HEART: Regular rate and rhythm. No murmur heard. Normal peripheral pulses. ABDOMEN: Soft, nontender, nondistended, normal active bowel sounds. MSK: LUE: Significantly limited range of motion to the left wrist due to pain. The wrist is warm, swollen but not erythematous. Quite tender to touch. Able to achieve few degrees of passive range of motion without pain. Left elbow has considerably more range of motion actively than the wrist. There is mild warmth and mild swelling but much less tender as well. RUE: Benign SKIN: Warm, dry, no rash. NEURO: Alert and oriented x4. No focal deficits. PSYCH: Normal mood and affect. Course Vital Signs Vital signs: Vital Signs Temperature 98.6 F 11/16/24 20:03 Pulse Rate 99 06/28/24 20:03 Respiratory Rate 13 06/28/24 20:03 Blood Pressure 188/75 H 06/28/24 20:03 Pulse Oximetry 100 06/28/24 20:03 Oxygen Delivery Room Air 06/28/24 20:03 Temperature 98.6 F 06/28/24 20:03 Pulse Rate 99 06/28/24 20:03 Respiratory Rate 13 06/28/24 20:03 Blood Pressure 188/75 H 06/28/24 20:03 Pulse Oximetry 100 06/28/24 20:03 Oxygen Delivery Room Air 06/28/24 20:03 MDM - Extremity Injury (Upper) MDM Narrative Medical decision making narrative: This is a 78 yo female presents to the ED for chief complaint of left upper extremity wrist and elbow pain without injury. Vitals show elevated blood pressure. Exam shows warm and swollen left wrist as well as left elbow but certainly worse in the wrist. Lab work shows normal white count on CBC. CRP mildly elevated up. BMP unremarkable. Uric acid level normal, although still suspicious of gout as the leading differential diagnosis. Low suspicion for septic joint, especially given 2 joint presentation. Left forearm x-rays: IMPRESSION: No acute osseous finding the left wrist. Moderate elbow joint effusion which can accompany occult fractures, likely of the radial head in a patient of this age. Patient was given morphine and Solu-Medrol here. Rx for Medrol Dosepak given. Advise that this will raise her blood sugars and she is to follow-up very closely with her PCP regarding this. Patient will be discharged in stable condition. Supportive measures discussed and return precautions given. Patient is understanding and agreeable with plan for discharge with PCP follow-up. Lab Data 06/28/24 23:54 06/28/24 23:54 Labs: Lab Results 06/28/24 Range/Units 23:54 WBC 7.7 (4.5-10.0) K/mm3 RBC 3.59 L (4.2-5.4) M/mm3 Hgb 10.8 L (12.0-15.0) g/dL Hct 33.7 L (37.0-47.0) % MCV 93.9 (80-100) fl MCH 30.1 (26-34) pg MCHC 32.0 (32-36) g/dl RDW 13.6 (11.5-14.5) % Plt Count 246 (150-375) k/mm3 MPV 9.9 (7.4-10.4) fl Immature Gran % (Auto) 0.4 (0-0.5) % Neut % (Auto) 68.4 (45.5-73.1) % Lymph % (Auto) 20.4 (18.3-44.2) % [place] % (Auto) 9.8 H (2.6-8.5) % Eos % (Auto) 0.5 (0-4.4) % Baso % (Auto) 0.5 (0.2-1.2) % Lymph # (Auto) 1.56 (0.9-3.2) K/mm3 [place] # (Auto) 0.8 H (0.1-0.6) K/mm3 Eos # (Auto) 0.0 (0-0.3) K/mm3 Baso # (Auto) 0.0 (0.0-0.1) K/mm3 Abs Immat Gran (auto) 0.03 (0.00-0.031) K/mm3 Absolute Neuts (auto) 5.2 (1.3-6.7) K/mm3 Absolute Nucleated RBC 0.000 (0.0-0.012) K/mm3 Nucleated RBC % 0.0 (0.0-0.2) % Sodium 137 (137-145) mmol/L Potassium 4.5 (3.4-5.0) mmol/L Chloride 100 (98-107) mmol/L Carbon Dioxide 29 (22-30) mmol/L Anion Gap 8 (4-12) mmol/L BUN 24 H D (7-17) mg/dL Creatinine 1.20 H (0.7-1.0) mg/dL Estim Creat Clear Calc 29 ml/min Estimated GFR 52 L (59 - ) Glucose 151 H (65-110) mg/dL Uric Acid 6.4 (2.5-7.5) mg/dL Calcium 9.5 (8.4-10.2) mg/dL C-Reactive Protein 3.5 H (<1.0) mg/dL Discharge Plan Discharge Clinical Impression: Arm pain, left Patient Disposition: Home, Self-Care Condition: Stable Instructions: Antibiotic Form Additional Instructions: Your exam and imaging today do show swelling of the joints of the forearm. This may represent gout. Please take steroids as prescribed follow-up closely with PCP as the steroids will raise her blood sugars. If you have any new or worsening symptoms please return to the ER for further evaluation. Prescriptions: New methylprednisolone [Medrol (Bo)] 4 mg tablets,dose pack See Rx Instructions .ROUTE .COMPLEX Qty: 21 0RF Rx Instructions: for 6 days No Action trazodone 50 mg tablet 50 mg PO QHS Qty: 30 2RF memantine 5 mg tablet See Rx Instructions .ROUTE .COMPLEX Qty: 180 1RF Dose Instruction: START TAKE 1 TABLET BY MOUTH EVERY DAY FOR 7 DAYS. THEN INCREASE TO 1 TABLET BY MOUTH TWICE A DAY Rx Instructions: START TAKE 1 TABLET BY MOUTH EVERY DAY FOR 7 DAYS. THEN INCREASE TO 1 TABLET BY MOUTH TWICE A DAY (DME) FreeStyle Maribel 3 [place] Misc See Rx Instructions .Route Qty: 1 0RF Rx Instructions: As directed (DME) FreeStyle Maribel 3 Sensor Device See Rx Instructions .Route Qty: 1 4RF Rx Instructions: As directed rosuvastatin 20 mg tablet 20 mg PO DAILY Qty: 90 2RF telmisartan 40 mg tablet See Rx Instructions .ROUTE .COMPLEX Qty: 90 3RF Hold Instructions: Home Medication placed on hold at Doctor's office Dose Instruction: TAKE 1 TABLET DAILY Rx Instructions: TAKE 1 TABLET DAILY (DME) FreeStyle Lite Strips Strip See Rx Instructions .ROUTE .COMPLEX Qty: 100 3RF Dose Instruction: USE DIRECTED DAILY Rx Instructions: USE DIRECTED DAILY tolterodine [Detrol LA] 2 mg capsule,extended release 24hr See Rx Instructions .ROUTE .COMPLEX Qty: 90 3RF Dose Instruction: TAKE 1 CAPSULE DAILY Rx Instructions: TAKE 1 CAPSULE DAILY Januvia 50 mg tablet 50 mg PO DAILY Qty: 90 1RF duloxetine 60 mg capsule,delayed release(DR/EC) See Rx Instructions .ROUTE .COMPLEX Qty: 90 1RF Dose Instruction: TAKE 1 CAPSULE BY MOUTH EVERY DAY Rx Instructions: TAKE 1 CAPSULE BY MOUTH EVERY DAY metoprolol tartrate 50 mg tablet See Rx Instructions .ROUTE .COMPLEX Qty: 180 1RF Dose Instruction: TAKE 1 TABLET BY MOUTH TWICE A DAY Rx Instructions: TAKE 1 TABLET BY MOUTH TWICE A DAY glimepiride 2 mg tablet 2 mg PO QAM Qty: 90 0RF Rx Instructions: administer with breakfast Follow-up/Referrals: Damaris Chadwick MD [Primary Care Provider] - Time of Disposition: 00:26
[2024-06-28] MEDS: methylPREDNISolone SOD SUCC 40 MG VIAL 80 MG IV PUSH (23:54)
[2024-06-28] MEDS: MORPHINE SULFATE (*CRX) 2 MG/ML INJ IV PUSH (23:54)
[2024-06-28 23:59] LABS: Basophils Percent Auto 0.5 % (0.2-1.2); Eosinophils Percent Auto 0.5 % (0-4.4); Hematocrit 33.7 % (37.0-47.0); Hemoglobin 10.8 g/dL (12.0-15.0); Immature Granulocyte Absolute 0.03 K/mm3 (0.00-0.031); Immature Granulocyte Percent A 0.4 % (0-0.5); Lymphocytes Absolute Auto 1.56 K/mm3 (0.9-3.2); Lymphocytes Percent Auto 20.4 % (18.3-44.2); Mean Corpuscular Hemoglobin 30.1 pg (26-34); Mean Corpuscular Volume 93.9 fl (80-100); Mean Platelet Volume 9.9 fl (7.4-10.4); Monocytes Absolute Auto 0.8 K/mm3 (0.1-0.6); Monocytes Percent Auto 9.8 % (2.6-8.5); Neutrophils Absolute Auto 5.2 K/mm3 (1.3-6.7); Neutrophils Percent Auto 68.4 % (45.5-73.1); Platelet Count Result 246 k/mm3 (150-375); Red Blood Count 3.59 M/mm3 (4.2-5.4); Red Cell Distribution Width 13.6 % (11.5-14.5); White Blood Count 7.7 K/mm3 (4.5-10.0)
[2024-06-29 00:20] LABS: Anion Gap 8 mmol/L (4-12); Blood Urea Nitrogen 24 mg/dL (7-17); CRP 3.5 mg/dL (<1.0); Calcium 9.5 mg/dL (8.4-10.2); Carbon Dioxide 29 mmol/L (22-30); Chloride 100 mmol/L (98-107); Estimated CRCL calculation 29 ml/min; Estimated Glomerular Filt Rate 52; Glucose 151 mg/dL (65-110); Potassium 4.5 mmol/L (3.4-5.0); Sodium 137 mmol/L (137-145); Uric Acid 6.4 mg/dL (2.5-7.5)
== END 2024-06-29 02:26 | disposition home or self-care (01) ==
PROVIDERS: Emergency Provider Physician Assistant; PCP Family Medicine
DX: M25.532 Pain in left wrist (principal); M25.522 Pain in left elbow; I12.9 Hypertensive chronic kidney disease with stage 1 through stage 4 chronic kidney disease, or unspecified chronic kidney disease; E11.22 Type 2 diabetes mellitus with diabetic chronic kidney disease; N18.2 Chronic kidney disease, stage 2 (mild); E11.43 Type 2 diabetes mellitus with diabetic autonomic (poly)neuropathy; E78.2 Mixed hyperlipidemia; M17.9 Osteoarthritis of knee, unspecified; M16.9 Osteoarthritis of hip, unspecified; G47.33 Obstructive sleep apnea (adult) (pediatric); F41.1 Generalized anxiety disorder; Z96.659 Presence of unspecified artificial knee joint; Z87.891 Personal history of nicotine dependence; Z79.899 Other long term (current) drug therapy; Z79.84 Long term (current) use of oral hypoglycemic drugs
CPT/HCPCS: 36415; 73090; 73110; 80048; 84550; 85025; 86140; 96374; 96375; 99284; J2270; J2919

== ENCOUNTER 2024-08-12 13:39 | Outpatient (CLI) | payer MEDICARE, OTHER, SELFPAY ==
--- NOTE | 2024-08-12 13:46 | ECHO_ITS ---
Patient Info Name: Tata Bell Age: 78 years : 1945 Gender: Female Ht: 60 in Wt: 162 lbs BSA: 1.79 m2 HR: 95 bpm BP: 111 / 67 mmHg Heart Rhythm: Sinus Rhythm Technical Quality: Fair Exam Date: 08/12/2024 1:48 PM Exam Location: Echo Lab Patient Status: Outpatient Admit Date: 08/12/2024 Staff Ordering Physician: Quinn Jacinto DO Casino Controller: Nurys Hunt RDCS Attending Provider: Quinn Jacinto DO Referring Physician: Orville BARRIENTOS; Exam Type: CA echo dop color flow w con Study Info Indications R06.09 - Other forms of dyspnea Complete two-dimensional, color flow and Doppler transthoracic echocardiogram is performed with contrast to opacify the left ventricle and to improve the deliniation of the left ventricle endocardial borders. Strain analysis performed. Contrast/Agitated Saline Contrast/Ag. Saline: Definity Amount: 2.00 ml Administered By: Nurys Hunt RDCS Existing IV Access: Yes IV Access Condition: patent with no signs of infiltration Summary 1. Normal left ventricular size and function EF is 60%. 2. Normal left ventricular wall thickness. 3. Grade 1 diastolic dysfunction. 4. E to E prime is slightly increased at 12. 5. Aortic valve is trileaflet with no AI. 6. Mitral valve collapse normally aerated with no significant mitral regurgitation. 7. Tricuspid valve is normal in appearance it has mild TR and the RV pressure is calculated at about 28-30 which is within normal limits. 8. Global strain was measured at -21 which is normal. 9. Ultrasound study demonstrated normal LV function with EF of 60%. 10. No pericardial effusion was seen. Left Ventricle Left ventricular chamber dimension is normal. Left ventricular systolic function is normal, estimated at Empty. There is no increased left ventricular wall thickness. The left ventricular diastolic function is grade I diastolic dysfunction. Right Ventricle Right ventricular chamber dimension is normal. Right ventricular systolic function is normal. Left Atria Left atrial chamber dimension is normal. Right Atria Right atrial chamber dimension is normal. Aortic Valve The aortic valve is trileaflet. There is no aortic valve regurgitation. Mitral Valve The mitral valve has normal leaflets. There is no mitral valve regurgitation. Tricuspid Valve The tricuspid valve leaflets are normal. There is mild tricuspid valve regurgitation. No pulmonary hypertension, estimated pulmonary arterial systolic pressure is 33 mmHg. Pericardium/Pleural There is no pericardial effusion. Inferior Vena Cava Normal inferior vena cava with >50% collapse upon inspiration consistent with Empty right atrial pressure, 10 mmHg. Aorta The aortic root size at the sinus of Valsalva is normal. Left Ventricular Outflow Tract Name Value Normal LVOT 2D LVOT Diameter 1.99 cm LVOT Doppler LVOT Peak Gradient 6 mmHg LVOT Mean Gradient 3 mmHg LVOT VTI 21.05 cm LVOT VTI/AV VTI Ratio 1.05 LVOT Stroke Volume 65.63 ml LVOT CO 5.97 l/min LVOT CI 3.33 L/min/m2 Pulmonic Valve Name Value Normal RVOT Doppler RVOT Peak Gradient 5 mmHg PV Doppler PV Peak Gradient 6 mmHg Mitral Valve Name Value Normal MV Doppler MV Decel [place] 531.78 cm/s2 MV PHT 0 s MV Area (PHT) 5.70 cm2 4.00-5.00 MV Diastolic Function MV E Peak Velocity 70.82 cm/s MV A Peak Velocity 97.67 cm/s MV E/A 0.73 MV Decel Time 0 s MV Annular TDI MV E/e' (Septal) 12.05 <=8.00 MV E/e' (Lateral) 8.22 <=8.00 MV E/e' (Average) 10.13 Tricuspid Valve Name Value Normal TV Regurgitation Doppler TR Peak Velocity 240.76 cm/s TR Peak Gradient 23 mmHg Estimated PAP/RSVP RA Pressure 10 mmHg <=5 PA Systolic Pressure 33 mmHg <36 RV Systolic Pressure 33 mmHg <36 Aorta Name Value Normal Ascending Aorta Ao Root Diameter (MM) 2.91 cm Ao Root Diam Index (MM) 1.62 cm/m2 Aortic Valve Name Value Normal AV Doppler AV Peak Velocity 120.16 cm/s AV Peak Gradient 6 mmHg AV Mean Gradient 3 mmHg AV VTI 19.99 cm AV Area (Cont Eq VTI) 3.28 cm2 >=3.00 AV Area (Cont Eq Frank) 3.17 cm2 AV Regurgitation 2D LVOT Area 3.12 cm2 Ventricles Name Value Normal LV Dimensions 2D/MM IVS Diastolic Thickness (2D) 0.97 cm 0.60-1.00 LVID Diastole (2D) 3.45 cm 3.80-5.20 LVIW Diastolic Thickness (2D) 0.99 cm 0.60-0.90 LVID Systole (2D) 2.31 cm 2.20-3.50 LVOT Diameter 1.99 cm LV Mass (2D Cubed) 98.42 g 67.00-162.00 LV Mass Index (2D Cubed) 0.01 g/cm2 0.00-0.01 Relative Wall Thickness (2D) 0.58 LV Fractional Shortening/Ejection Fraction 2D/MM LV Fractional Shortening (2D) 33 % 27-45 LV EF (2D Teicholz) 63 % 54-74 LV Diastolic Volume (4C MOD) 37.49 ml LV EF (4C MOD) 78 % LV Diastolic Volume (2C MOD) 26.87 ml LV EF (2C MOD) 67 % LV Diastolic Volume (BP MOD) 32.37 ml 46.00-106.00 LV Diastolic Volume Index (BP MOD) 0.02 l/m2 0.03-0.06 LV Systolic Volume (BP MOD) 9.00 ml 14.00-42.00 LV Systolic Volume Index (BP MOD) 0.01 l/m2 0.01-0.02 LV EF (BP MOD) 72 % 54-74 LV Diastolic Length (4C) 7.02 cm LV Systolic Length (4C) 4.68 cm LV Stroke Volume (4C MOD) 29.06 ml Atria Name Value Normal LA Dimensions LA Dimension (MM) 3.28 cm 2.70-3.80 LA Volume (4C A-L) 15.60 ml LA Volume (BP A-L) 22.46 ml RA Dimensions RA Area (4C) 12.38 cm2 <=18.00 EchoPAC Name Value Normal ELIJAH AA peak sys SL (AWMA) 20 % AAS peak sys SL (AWMA) 29 % AI peak sys SL (AWMA) 28 % AL peak sys SL (AWMA) 18 % AP peak sys SL (AWMA) 25 % peak sys SL (AWMA) 25 % AVC (AWMA) 0 s BA peak sys SL (AWMA) 17 % BAS peak sys SL (AWMA) 18 % BI peak sys SL (AWMA) 21 % BL peak sys SL (AWMA) 15 % BP peak sys SL (AWMA) 19 % BS peak sys SL (AWMA) 21 % G peak SL(A2C) (AWMA) 21 % G peak SL(A4C) (AWMA) 19 % G peak SL(APLAX) (AWMA) 22 % G peak SL(Avg) (AWMA) 21 % MA peak sys SL (AWMA) 16 % MAS peak sys SL (AWMA) 23 % ID peak sys SL (AWMA) 25 % ML peak sys SL (AWMA) 13 % MP peak sys SL (AWMA) 18 % MS peak sys SL (AWMA) 23 % Report Signatures
[2024-08-12] MEDS: PERFLUTREN LIPID MICROSPHERES 1.5 ML VIAL DILUTED TO 10 ML TOTAL VOLUME IV PUSH (16:00)
--- NOTE | 2024-08-12 16:22 | IVDEFINITY ---
Prior to administration of IV Definity the patient was educated on the risks and benefits of the imaging enhancing agent including potential adverse side effects. The patient verbalized understanding. Allergies were verified. No exclusion criteria were identified and at least one of the following inclusion criteria were met: 1) physician request, 2) patient technically difficult to image (per the [place] [employer] guidelines of two or more segments not discernable within the apical view), or 3) questionable left ventricular function. ?
== END 2024-08-12 13:40 | disposition home or self-care (01) ==
PROVIDERS: PCP Family Medicine; Visit Provider Internal Medicine Cardiovascular Disease
DX: I05.9 Rheumatic mitral valve disease, unspecified (principal); R06.09 Other forms of dyspnea
CPT/HCPCS: C8929; Q9957